=== PATIENT | male | born 1995 | race Caucasian/White ===

== ENCOUNTER 2021-07-20 19:16 | Emergency (ER) | payer SELFPAY ==
[2021-07-20 19:41] VITALS: BMI 29.2
[2021-07-20 19:53] VITALS: BP 130/88; PULSE 87; TEMP 99.4
[2021-07-20] MEDS ORDERED: SODIUM CHLORIDE 1,000 ML IV STA ×2 (20:15→21:52)
[2021-07-20] MEDS ORDERED: ONDANSETRON 4 MG/2 ML VIAL IVPUSH ONE ×2 (20:15→21:52)
[2021-07-20] MEDS ORDERED: FAMOTIDINE 20 MG/50 ML IVPB 20 MG/50 ML MG IVPB ONE ×2 (20:15→20:25)
[2021-07-20] MEDS ORDERED: ONDANSETRON 4 MG/2 ML VIAL ONE ×2 (20:25→21:56)
[2021-07-20 20:46] LABS: HEMOGLOBIN 15.7 GM/dl (11.7-16.9); MEAN PLT VOLUME 9.9 fl (7.5-11.1); MONO % 2.4 % (3.8-10.2)
[2021-07-20 20:49] LABS: BASO % 4.8 % (0-2.0); HEMATOCRIT 46.3 % (35.4-49); LYMPH % 5.4 % (8-40); MCH 28.2 pg (25.7-33.7); NEUT % 87.4 % (42.8-82.8); PLATELET COUNT 300 10^3/uL (134-434); RBC 5.58 M/mm3 (4.00-5.60); RDW 13.4 % (11.9-15.9); WHITE BLOOD COUNT 15.6 K/mm3 (4.0-10.8)
[2021-07-20 21:35] LABS: ALBUMIN 4.5 g/dl (3.4-5.0); BILIRUBIN,TOTAL 0.8 mg/dl (0.2-1); CALCIUM 9.9 mg/dl (8.5-10); CREATININE 1.1 mg/dl (0.55-1.3); TOT PROT 7.6 g/dl (6.4-8.2)
[2021-07-20] MEDS ORDERED: PANTOPRAZOLE SODIUM 40 MG VIAL IVPB ONE (21:53)
[2021-07-20] MEDS ORDERED: PANTOPRAZOLE SODIUM 40 MG VIAL ONE (21:57)
[2021-07-20] MEDS ORDERED: LORazepam 2 MG/ML SDV VIAL IVPUSH ONE (22:55)
[2021-07-20] MEDS ORDERED: LORazepam 2 MG/ML SDV VIAL ONE (22:57)
[2021-07-20] MEDS ORDERED: HALOPERIDOL LACTATE 5 MG/ML IV ONE (23:35)
[2021-07-20] MEDS ORDERED: HALOPERIDOL LACTATE 5 MG/ML SYRINGE ONE (23:38)
== END 2021-07-20 23:56 | disposition home or self-care (01) ==
LOC: FER 19:16
PROC: 3E033GC Introduction of Other Therapeutic Substance into Peripheral Vein, Percutaneous Approach (ICD-10-PCS; principal; 2021-07-20)
PROC: 3E033NZ Introduction of Analgesics, Hypnotics, Sedatives into Peripheral Vein, Percutaneous Approach (ICD-10-PCS; 2021-07-20)
PROC: 3E033GC Introduction of Other Therapeutic Substance into Peripheral Vein, Percutaneous Approach (ICD-10-PCS; 2021-07-20)
PROC: 3E033GC Introduction of Other Therapeutic Substance into Peripheral Vein, Percutaneous Approach (ICD-10-PCS; 2021-07-20)
PROC: 3E033GC Introduction of Other Therapeutic Substance into Peripheral Vein, Percutaneous Approach (ICD-10-PCS; 2021-07-20)
PROC: 3E0337Z Introduction of Electrolytic and Water Balance Substance into Peripheral Vein, Percutaneous Approach (ICD-10-PCS; 2021-07-20)
PROC: 3E0337Z Introduction of Electrolytic and Water Balance Substance into Peripheral Vein, Percutaneous Approach (ICD-10-PCS; 2021-07-20)
DX: F12.188 Cannabis abuse with other cannabis-induced disorder (principal)
CPT/HCPCS: 36415; 80053; 83690; 85025; 99284-25

== ENCOUNTER 2021-11-19 19:15 | Observation (INO) | payer OTHER ==
[2021-11-19] MEDS ORDERED: SODIUM CHLORIDE 1,000 ML IV STA (19:57)
[2021-11-19] MEDS ORDERED: ACETAMINOPHEN 1000 MG/100 ML BAG IVPB ONE (19:57)
[2021-11-19] MEDS ORDERED: FAMOTIDINE 20 MG/50 ML IVPB 20 MG/50 ML MG IVPB ONE ×2 (19:57→19:59)
[2021-11-19] MEDS ORDERED: ACETAMINOPHEN INJECTION 100 ML IVPB ONE (20:01)
[2021-11-19] MEDS ORDERED: ONDANSETRON *ODT* 4 MG TABLET SL ONE (20:48)
[2021-11-19] MEDS ORDERED: ONDANSETRON *ODT* 4 MG TABLET ONE (20:59)
[2021-11-19 21:38] LABS: HEMATOCRIT 46.6 % (35.4-49); HEMOGLOBIN 15.8 GM/dL (11.7-16.9); MCH 27.8 pg (25.7-33.7); MCHC 33.9 g/dl (32.0-35.9); MEAN CELL VOLUME 81.9 fl (80-96); MEAN PLT VOLUME 9.7 fl (7.5-11.1); PLATELET COUNT 403 10^3/uL (134-434); RBC 5.69 M/mm3 (4.00-5.60); RDW 13.3 % (11.9-15.9); WHITE BLOOD COUNT 13.9 K/mm3 (4.0-10.0)
[2021-11-19 21:44] LABS: ALBUMIN 5.1 g/dl (3.4-5.0); CALCIUM 10.9 mg/dL (8.5-10.1)
[2021-11-19 21:45] LABS: BLOOD UREA NITROGEN 18.8 mg/dL (7-18)
[2021-11-19 21:48] LABS: CREATININE 1.4 mg/dL (0.55-1.3)
[2021-11-19 21:49] LABS: TOT PROT 8.8 g/dl (6.4-8.2)
[2021-11-19] MEDS ORDERED: LORazepam 2 MG/ML SDV VIAL IVPUSH ONE ×2 (21:54)
[2021-11-19] MEDS ORDERED: LACTATED RINGERS SOLUTION 1000 ML INFUS.BAG IV ONE (22:07)
[2021-11-19] MEDS ORDERED: POLYETHYLENE GLYCOL (HEALTHYLAX) 3350 17 GM PACKET PO PRN (23:43)
[2021-11-19] MEDS ORDERED: ACETAMINOPHEN 325 MG TABLET (FP) PO PRN (23:43)
[2021-11-20] MEDS ORDERED: TRIMETHOBENZAMIDE HCL 200MG/2ML INJ IM PRN (03:35)
[2021-11-20] MEDS ORDERED: ACETAMINOPHEN 1000 MG/100 ML BAG IVPB PRN (03:36)
[2021-11-20 03:55] VITALS: BMI 35.2
[2021-11-20 08:39] LABS: BASO % 0.1 % (0-2.0); LYMPH % 13.6 % (8-40); MCH 27.4 pg (25.7-33.7); MCHC 33.2 g/dl (32.0-35.9); MEAN CELL VOLUME 82.5 fl (80-96); MEAN PLT VOLUME 9.3 fl (7.5-11.1); MONO % 8.4 % (3.8-10.2); NEUT % 77.9 % (42.8-82.8); PLATELET COUNT 363 10^3/uL (134-434); RBC 5.09 M/mm3 (4.00-5.60); RDW 13.5 % (11.9-15.9); WHITE BLOOD COUNT 12.2 K/mm3 (4.0-10.0)
[2021-11-20 08:47] LABS: INR 1.28 (0.83-1.09); PROTHROMBIN TIME (PATIENT) 14.7 SEC (9.7-13.0)
[2021-11-20 08:49] LABS: ACTIVATED PTT 31.4 SECONDS (25.2-36.5)
[2021-11-20 09:01] LABS: CALCIUM 10.2 mg/dL (8.5-10.1)
[2021-11-20 09:02] LABS: BLOOD UREA NITROGEN 18.4 mg/dL (7-18); MAGNESIUM 2.4 mg/dL (1.8-2.4)
[2021-11-20 09:05] LABS: CREATININE 1.2 mg/dL (0.55-1.3); PHOSPHOROUS 4.7 mg/dL (2.5-4.9)
[2021-11-20] MEDS: PANTOPRAZOLE SODIUM 40 MG VIAL IVPUSH SCH (10:11)
[2021-11-20] MEDS ORDERED: ONDANSETRON 4 MG/2 ML VIAL IVPUSH PRN (11:09)
[2021-11-20] MEDS: SODIUM CHLORIDE 1,000 ML IV SCH (14:00)
[2021-11-20] MEDS: METOCLOPRAMIDE HCL INJECTION 10 MG/2 ML VIAL IVPUSH PRN ×2 (15:12→21:13)
[2021-11-21] MEDS ORDERED: PROCHLORPERAZINE INJECTION 10 MG/2 ML VIAL IVPB PRN (09:08)
[2021-11-21] MEDS: PANTOPRAZOLE SODIUM 40 MG VIAL IVPUSH SCH (09:12)
[2021-11-21] MEDS ORDERED: MELATONIN 5 MG TABLETS PO ONE (10:34)
[2021-11-21 11:19] LABS: CALCIUM 9.2 mg/dL (8.5-10.1)
[2021-11-21] MEDS ORDERED: POTASSIUM CHLORIDE TABS 20 MEQ TABLET.ER (FP) PO ONE (11:19)
[2021-11-21 11:20] LABS: BLOOD UREA NITROGEN 12.5 mg/dL (7-18)
[2021-11-21 11:32] LABS: TOT PROT 6.8 g/dl (6.4-8.2)
[2021-11-21] MEDS: SODIUM CHLORIDE 1,000 ML IV SCH (13:21)
[2021-11-21 14:34] LABS: BASO % 0.2 % (0-2.0); HEMATOCRIT 38.4 % (35.4-49); HEMOGLOBIN 12.8 GM/dL (11.7-16.9); MCH 27.6 pg (25.7-33.7); MCHC 33.2 g/dl (32.0-35.9); MEAN PLT VOLUME 9.4 fl (7.5-11.1); NEUT % 71.8 % (42.8-82.8); PLATELET COUNT 271 10^3/uL (134-434); RBC 4.63 M/mm3 (4.00-5.60); RDW 13.6 % (11.9-15.9); WHITE BLOOD COUNT 8.7 K/mm3 (4.0-10.0)
[2021-11-21 15:16] VITALS: BP 136/78; PULSE 80; TEMP 99.1
== END 2021-11-21 15:37 | disposition left against medical advice (07) ==
LOC: JER 19:15 → INTOOBSV 22:16 → JERBED 22:16 → UNDOADMOB 22:16 → J8W 11-20 02:48 → JERBED 11-20 02:48 → J4S 11-20 05:14 → J8W 11-20 05:14 → J4S 11-20 12:09
PROVIDERS: ADMIT Hospitalist; ATTEND Internal Medicine
PROC: 3E033GC Introduction of Other Therapeutic Substance into Peripheral Vein, Percutaneous Approach (ICD-10-PCS; principal; 2021-11-20)
PROC: 3E033NZ Introduction of Analgesics, Hypnotics, Sedatives into Peripheral Vein, Percutaneous Approach (ICD-10-PCS; 2021-11-20)
PROC: 3E0337Z Introduction of Electrolytic and Water Balance Substance into Peripheral Vein, Percutaneous Approach (ICD-10-PCS; 2021-11-20)
PROC: 3E033GC Introduction of Other Therapeutic Substance into Peripheral Vein, Percutaneous Approach (ICD-10-PCS; 2021-11-20)
PROC: 3E023GC Introduction of Other Therapeutic Substance into Muscle, Percutaneous Approach (ICD-10-PCS; 2021-11-20)
DX: R11.2 Nausea with vomiting, unspecified (principal); F12.10 Cannabis abuse, uncomplicated; F11.90 Opioid use, unspecified, uncomplicated; R10.84 Generalized abdominal pain; R00.1 Bradycardia, unspecified; Z91.14 Patient's other noncompliance with medication regimen; I10 Essential (primary) hypertension; E66.9 Obesity, unspecified; Z68.35 Body mass index [BMI] 35.0-35.9, adult; F17.290 Nicotine dependence, other tobacco product, uncomplicated
CPT/HCPCS: 36415; 71045-TC-FY; 74177-TC; 80048; 80053; 83605; 83735; 84100; 85025; 85027; 85610; 85730; 87811; 93005; 93010; 96361; 96365; 96372; 96375; 96376; 99285-25; C9803-CS; G0378; Q0162; Q9967; U0003; U0005